=== PATIENT | male | born 1975 | race Caucasian/White ===

== ENCOUNTER 2018-02-21 08:24 | Emergency (ER) | payer BC, OTHER ==
[2018-02-21 08:29] VITALS: BMI 32.1
[2018-02-21] MEDS ORDERED: PANTOPRAZOLE SODIUM 40 MG/100 ML BAG IVPB ONE (08:47)
[2018-02-21] MEDS ORDERED: ONDANSETRON 4 MG/2 ML VIAL ONE ×2 (08:47→10:49)
[2018-02-21] MEDS ORDERED: PANTOPRAZOLE SODIUM 40 MG in SODIUM CHLORIDE 100 ML IVPB ONE (09:05)
[2018-02-21] MEDS ORDERED: ONDANSETRON 4 MG/2 ML VIAL IVPUSH ONE ×2 (09:05→10:29)
[2018-02-21] MEDS ORDERED: SODIUM CHLORIDE 1,000 ML IV STA ×2 (09:05→09:42)
[2018-02-21 09:24] LABS: BASO % 0.1 % (0-2.0); EOS % 0.1 % (0-4.5); HEMATOCRIT 47.2 % (35.4-49); HEMOGLOBIN 15.5 GM/dL (11.7-16.9); LYMPH % 3.5 % (8-40); MCHC 32.9 g/dl (32.0-35.9); MEAN CELL VOLUME 88.2 fl (80-96); MEAN PLT VOLUME 8.2 fl (7.5-11.1); MONO % 2.5 % (3.8-10.2); NEUT % 93.8 % (42.8-82.8); PLATELET COUNT 331 K/MM3 (134-434); RBC 5.35 M/mm3 (4.00-5.60); RDW 13.3 % (11.9-15.9); WHITE BLOOD COUNT 19.7 K/mm3 (4.0-10.0)
--- NOTE | 2018-02-21 09:24 | PDOC ---
History of Present Illness - General Chief Complaint: Nausea/Vomiting Stated Complaint: NAUSEA/VOMITING, ABD PAIN Time Seen by Provider: 02/21/18 08:36 History Source: Patient Exam Limitations: No Limitations - History of Present Illness Travel History: No Initial Comments: 02/21/18 09:02 42-year-old male presents to the emergency department with complaints of nausea and vomiting since yesterday now with epigastric constant cramping and diarrhea since this morning. Patient states 2 other family members with similar symptoms the day prior but not as severe. Patient denies recent travel or recent change in diet, fever or chills. Patient denies GI history history of kidney stones, alcohol use, or diabetes Timing/Duration: reports: constant Quality: reports: mild, cramping Abdominal Pain Onset Location: reports: epigastric Pain Radiation: reports: no radiation Activities at Onset: reports: none Aggravating Factors: improves with: None Alleviating Factors: improves with: None Past History - Travel Traveled outside of the country in the last 30 days: No - Past Medical History Allergies/Adverse Reactions: Allergies Allergy/AdvReac Type Severity Reaction Status Date / Time No Known Allergies Allergy Verified 02/21/18 08:26 Home Medications: Ambulatory Orders NK [No Known Home Medication] 10/26/14 Anemia: No Asthma: No Cancer: No Cardiac Disorders: No CVA: No COPD: No CHF: No DVT: No - Immunization History Immunization Up to Date: No - Suicide/Smoking/Psychosocial Hx Smoking History: Never smoked Have you smoked in the past 12 months: Yes Number of Cigarettes Smoked Daily: 20 Information on smoking cessation initiated: No 'Breaking Loose' booklet given: 10/26/14 Hx Alcohol Use: No Drug/Substance Use Hx: No Substance Use Type: Marijuana, Opiates, Prescribed Patient Lives Alone: No Lives with/in: spouse/SO Abd/GI Specific PMHX - Complaint Specific PMHX Colitis: No Diverticulitis: No Gall Bladder Disease: No GERD: No Review of Systems - Review of Systems Able to Perform ROS?: Yes Constitutional: Yes: Weakness HEENTM: No: Symptoms Reported Respiratory: No: Symptoms reported Cardiac (ROS): No: Symptoms Reported ABD/GI: Yes: Diarrhea, Nausea, Poor Appetite, Poor Fluid Intake, Vomiting, Abdominal cramping : No: Symptoms Reported Musculoskeletal: No: Symptoms Reported Integumentary: No: Rash Neurological: No: Symptoms reported *Physical Exam - Vital Signs Last Vital Signs Temp Pulse Resp BP Pulse Ox 90 16 126/90 98 02/21/18 08:26 02/21/18 08:26 02/21/18 08:26 02/21/18 08:26 - Physical Exam General Appearance: Yes: Nourished, Appropriately Dressed. No: Apparent Distress HEENT: positive: Pharynx Normal, Pale Conjunctivae Neck: positive: Supple Respiratory/Chest: positive: Lungs Clear, Normal Breath Sounds. negative: Respiratory Distress, Accessory Muscle Use Cardiovascular: positive: Regular Rhythm, Regular Rate. negative: Murmur Gastrointestinal/Abdominal: positive: Soft, Tenderness (epigastric) Musculoskeletal: negative: CVA Tenderness Extremity: positive: Normal Inspection Integumentary: positive: Normal Color, Warm, Moist Neurologic: positive: Motor Strength 5/5 (ambulatory) Moderate Sedation - Procedure Monitoring Vital Signs: Procedure Monitoring Vital Signs Temperature Pulse Rate 90 02/21/18 08:26 Respiratory Rate 16 02/21/18 08:26 Blood Pressure 126/90 02/21/18 08:26 O2 Sat by Pulse Oximetry (%) 98 02/21/18 08:26 ED Treatment Course - LABORATORY CBC & Chemistry Diagram: 02/21/18 11:25 02/21/18 09:15 - Medications Given in the ED: ED Medications Discontinued Medications Generic Name Dose Route Start Last Admin Trade Name Derikq PRN Reason Stop Dose Admin Ondansetron HCl 4 mg 02/21/18 09:05 02/21/18 09:11 Zofran Injection IVPUSH 02/21/18 09:06 4 mg ONCE ONE Administration Medical Decision Making - Medical Decision Making 02/21/18 09:02 Plan: Nausea vomiting diarrhea epigastric pain for 2 days to other family members similar symptoms but not as severe as per patient Exam: mild epigastric tenderness actively vomiting upon arrival. Plan: CBC, comp, lipase, magnesium, urinalysis, IV fluids, Zofran and Protonix ordered. 02/21/18 10:35 Laboratory Tests 02/21/18 02/21/18 09:15 09:15 WBC 19.7 H Hgb 15.5 Hct 47.2 Absolute Neuts (auto) 18.4 H Neutrophils % 93.8 H D Lymphocytes % 3.5 L D Monocytes % 2.5 L Sodium 138 Potassium 4.3 Anion Gap 6 L BUN 16 Creatinine 0.9 Random Glucose 124 H Magnesium 1.9 Alkaline Phosphatase 144 H Lipase 166 02/21/18 10:35 Patient given second liter of fluid and will repeat CBC along with lactic acid after completion of second bag. Patient states feeling better and requesting ice chips 02/21/18 12:02 Laboratory Tests 02/21/18 02/21/18 10:18 11:25 WBC 17.7 H Hgb 14.3 Hct 43.7 Neutrophils % 94.7 H Lymphocytes % 3.7 L Monocytes % 1.5 L Lactic Acid Pending 02/21/18 12:43 Laboratory Tests 02/21/18 10:18 Lactic Acid 1.9 02/21/18 12:57 Tolerated approximately 300 mL of Gatorade and vitamin water. Patient is asymptomatic presently. Patient requesting to go home and we'll give a prescription for Zofran with strict instructions on diet precautions and symptoms to be aware of. *DC/Admit/Observation/Transfer Diagnosis at time of Disposition: Nausea, vomiting and diarrhea - Discharge Dispostion Disposition: HOME Condition at time of disposition: Improved - Referrals - Patient Instructions Printed Discharge Instructions: DI for Diarrhea and Traveler's Diarrhea -- Adult, DI for Nausea -- Adult, DI for Vomiting -- Adult Additional Instructions: Follow a bland diet for the next 72 hours and advance as tolerated. Please drink plenty of fluids and allow yourself to rest. Return to the ED if you develop worsening pain, inability to tolerate foods/ liquids, or fever - Post Discharge Activity Forms/Work/School Notes: Back to Work
[2018-02-21 09:44] LABS: ALBUMIN 4.3 g/dl (3.4-5.0); ALK PHOS 144 U/L (45-117); ANION GAP 6 MMOL/L (8-16); BILIRUBIN,TOTAL 0.5 mg/dL (0.2-1); BLOOD UREA NITROGEN 16 mg/dL (7-18); CALCIUM 9.2 mg/dL (8.5-10.1); CHLORIDE 105 mmol/L (98-107); CO2 26 mmol/L (21-32); CREATININE 0.9 mg/dL (0.55-1.3); GLUCOSE,RANDOM 124 mg/dL (74-106); LIPASE 166 U/L (73-393); MAGNESIUM 1.9 mg/dL (1.8-2.4); POTASSIUM 4.3 mmol/L (3.5-5.1); SGOT/AST 18 U/L (15-37); SGPT/ALT 38 U/L (13-61); SODIUM 138 mmol/L (136-145); TOT PROT 7.7 g/dl (6.4-8.2)
[2018-02-21 10:57] LABS: ACANTHOCYTES 0; ANISOCYTOSIS 0; HELMET CELLS 0; HOWELL-JOLLY BODIES 0; MACROCYTOSIS 0; OVALOCYTE 0; PLATELET ESTIMATE NORMAL; ROULEAU 0; SICKELED CELLS 0; TARGET CELLS 0; TEAR DROP CELLS 0; TOXIC GRANULATION 0
[2018-02-21 11:26] LABS: URINE APPEARANCE CLEAR; URINE BILIRUBIN NEGATIVE (<2.0 mg/dL); URINE COLOR YELLOW; URINE GLUCOSE (UA) NEGATIVE (NEGATIVE); URINE KETONE NEGATIVE (NEGATIVE); URINE LEUK ESTERASE NEGATIVE (NEGATIVE); URINE NITRITE NEGATIVE (NEGATIVE); URINE PROTEIN NEGATIVE (NEGATIVE); URINE UROBILINOGEN NEGATIVE mg/dL (0.2-1.0)
[2018-02-21 11:46] LABS: EOS % 0.1 % (0-4.5); HEMATOCRIT 43.7 % (35.4-49); HEMOGLOBIN 14.3 GM/dL (11.7-16.9); LYMPH % 3.7 % (8-40); MCH 28.8 pg (25.7-33.7); MCHC 32.8 g/dl (32.0-35.9); MEAN CELL VOLUME 87.9 fl (80-96); MEAN PLT VOLUME 8.3 fl (7.5-11.1); MONO % 1.5 % (3.8-10.2); NEUT % 94.7 % (42.8-82.8); PLATELET COUNT 322 K/MM3 (134-434); RBC 4.98 M/mm3 (4.00-5.60); WHITE BLOOD COUNT 17.7 K/mm3 (4.0-10.0)
[2018-02-21 12:54] LABS: ACANTHOCYTES 0; ANISOCYTOSIS 0; HELMET CELLS 0; HOWELL-JOLLY BODIES 0; MACROCYTOSIS 0; OVALOCYTE 0; PLATELET ESTIMATE NORMAL; ROULEAU 0; SICKELED CELLS 0; TARGET CELLS 0; TEAR DROP CELLS 0; TOXIC GRANULATION 0
[2018-02-21] MEDS ORDERED: ACETAMINOPHEN 500 MG TABLET (FP) PO ONE (13:25)
[2018-02-21 13:29] VITALS: BP 120/79; PULSE 98; TEMP 101.2
[2018-02-21] MEDS ORDERED: ACETAMINOPHEN 325 MG TABLET (FP) ONE (13:30)
== END 2018-02-21 13:37 | disposition home or self-care (01) ==
LOC: JER 08:24
PROC: 3E033GC Introduction of Other Therapeutic Substance into Peripheral Vein, Percutaneous Approach (ICD-10-PCS; principal; 2018-02-21)
PROC: 3E0337Z Introduction of Electrolytic and Water Balance Substance into Peripheral Vein, Percutaneous Approach (ICD-10-PCS; 2018-02-21)
PROC: 3E033GC Introduction of Other Therapeutic Substance into Peripheral Vein, Percutaneous Approach (ICD-10-PCS; 2018-02-21)
DX: R11.2 Nausea with vomiting, unspecified (principal); R19.7 Diarrhea, unspecified
CPT/HCPCS: 36415; 80053; 81003; 83605; 83690; 83735; 85025; 99283-25; J7030

== ENCOUNTER 2021-08-15 12:31 | Emergency (ER) | payer BC ==
[2021-08-15 12:34] VITALS: BP 169/88; PULSE 105; TEMP 97.9; BMI 26.9
== END 2021-08-15 14:18 | disposition home or self-care (01) ==
LOC: JERFT 12:31
DX: M25.522 Pain in left elbow (principal)
CPT/HCPCS: 99283-25